=== PATIENT | female | born 1980 | race Caucasian/White ===

== ENCOUNTER → 2024-02-10 | Emergency (ER) | payer BC, MEDICAID, SELFPAY ==
[~2024-02-10] VITALS: Ht 165.1 cm; Wt 105.0 kg
[~2024-02-10] MED LIST: DIPH25CA85 PO; QUET400T5 PO
[2024-02-10 04:06] VITALS: BP 132/82; PULSE 72; RESP 16; TEMP 98; O2SAT 100
[2024-02-10] MEDS: DiphenhydrAMINE HCL 25 MG CAPSULE PO ONE (07:03)
== END | disposition home or self-care (01) ==
LOC: EMS 03:59
DX: S20.361A Insect bite (nonvenomous) of right front wall of thorax, initial encounter (principal); R20.2 Paresthesia of skin; R20.0 Anesthesia of skin; F32.A Depression, unspecified; W57.XXXA Bitten or stung by nonvenomous insect and other nonvenomous arthropods, initial encounter; Y93.89 Activity, other specified; Y92.89 Other specified places as the place of occurrence of the external cause; Y99.8 Other external cause status
CPT/HCPCS: 99283

== ENCOUNTER 2024-04-07 19:48 | Emergency (ER) | payer SELFPAY ==
[~2024-04-07] VITALS: Ht 157.5 cm; Wt 101.4 kg
[2024-04-07 19:55] VITALS: TEMP 98.1
[2024-04-07 20:09] LABS: BASOPHILS % (AUTO) 0.8 % (0.0-2.0); EOSINOPHILS % (AUTO) 2.5 % (1.0-6.0); HEMATOCRIT 42.6 % (36-46); HEMOGLOBIN 14.2 g/dL (12.0-16.0); LYMPHOCYTES # (AUTO) 2.2 K/uL (1.0-4.8); LYMPHOCYTES % (AUTO) 36.7 % (22.0-44.0); MEAN CORPUSCULAR HEMOGLOBIN 29.3 pg (26.0-34.0); MEAN CORPUSCULAR HGB CONC 33.3 G/dL (31.0-37.0); MEAN CORPUSCULAR VOLUME 88 fL (80-100); MONOCYTES # (AUTO) 0.5 K/uL (0.1-1.0); MONOCYTES % (AUTO) 9.1 % (2.0-9.0); NEUTROPHILS % (AUTO) 50.9 % (40.0-70.0); PLATELET COUNT (AUTO) 263 K/uL (150-450); RED BLOOD CELL COUNT(AUTO) 4.84 MIL/uL (4.00-5.20); RED CELL DISTRIBUTION WIDTH 13.2 % (11.5-14.5); WHITE BLOOD COUNT (AUTO) 5.9 K/uL (4.5-11.0)
[2024-04-07 20:19] LABS: ANION GAP 5 mmol/L (8-16); CARBON DIOXIDE 28 mmol/L (22-29); CHLORIDE 103 mmol/L (98-107); CREATININE 0.84 mg/dL (0.60-1.30); GLOMERULAR FILTR. RATE CALC > 60 mL/min (>60); GLUCOSE,RANDOM 124 mg/dL (70-110); POTASSIUM 3.7 mmol/L (3.5-5.1); SODIUM SERUM 136 mmol/L (136-145); UREA NITROGEN, BLOOD 7 mg/dL (7-18)
[2024-04-07 20:26] LABS: TROPONIN I-HIGH SENSITIVITY 4 ng/L (<51)
[2024-04-07 20:28] LABS: B-TYPE NATRIURETIC PEPTIDE 15 pg/mL (0-100)
[2024-04-07 20:46] LABS: APPEARANCE,URINE CLEAR (CLEAR); BILIRUBIN,URINE NEGATIVE (NEGATIVE); COLOR,URINE COLORLESS (YELLOW); GLUCOSE, URINE (UA) NEGATIVE (NEGATIVE); HCG,QUAL URINE NEGATIVE (NEGATIVE); KETONES,URINE NEGATIVE (NEGATIVE); LEUKOCYTE ESTERASE ,URINE NEGATIVE (NEGATIVE); NITRATE,URINE NEGATIVE (NEGATIVE); OCCULT BLOOD,URINE NEGATIVE (NEGATIVE); PH,URINE 6.5 (5.0-8.0); PROTEIN,URINE NEGATIVE (NEGATIVE); SPECIFIC GRAVITIY, URINE 1.003 (1.003-1.030); UROBILINOGEN,URINE <=1.0 mg/dL (<=1.0)
[2024-04-07 20:54] LABS: BACTERIA,URINE Rare /HPF (None Seen); RBC,URINE 0-2 /HPF (0-2); SQUAMOUS EPITHELIAL CELL,UR Few /LPF (None Seen); WBC,URINE 0-2 /HPF (0-5); YEAST,URINE Few /HPF (None Seen)
[2024-04-07] MEDS ORDERED: MAG30ORA11 PO (22:40)
[2024-04-07] MEDS ORDERED: OMEP20 PO (22:40)
[2024-04-07] MEDS ORDERED: ACET-66 PO (22:40)
[2024-04-07 23:12] VITALS: BP 132/73; PULSE 84; RESP 18; O2SAT 99
== END 2024-04-07 23:50 | disposition home or self-care (01) ==
LOC: EMS 19:49
DX: R07.89 Other chest pain (principal); R11.0 Nausea
CPT/HCPCS: 71045; 80048; 81001; 83880; 84484; 84703; 85025; 93005; 99285; 36415-L1; 36415-TC

== ENCOUNTER 2024-04-26 21:19 | Inpatient (IN) | payer MEDICAID ==
[~2024-04-26] VITALS: Ht 157.5 cm; Wt 102.6 kg
[~2024-04-26 21:19] MED LIST changes: +ACET-66 PO; +MAG30ORA11 PO; +OMEP20 PO
[2024-04-26 21:51] LABS: BASOPHILS % (AUTO) 0.5 % (0.0-2.0); EOSINOPHILS % (AUTO) 2.4 % (1.0-6.0); HEMATOCRIT 42.8 % (36-46); HEMOGLOBIN 14.3 g/dL (12.0-16.0); LYMPHOCYTES # (AUTO) 2.1 K/uL (1.0-4.8); LYMPHOCYTES % (AUTO) 30.6 % (22.0-44.0); MEAN CORPUSCULAR HEMOGLOBIN 29.5 pg (26.0-34.0); MEAN CORPUSCULAR HGB CONC 33.4 G/dL (31.0-37.0); MEAN CORPUSCULAR VOLUME 88 fL (80-100); MONOCYTES # (AUTO) 0.7 K/uL (0.1-1.0); NEUTROPHILS # (AUTO) 3.8 K/uL (1.8-7.7); NEUTROPHILS % (AUTO) 56.5 % (40.0-70.0); PLATELET COUNT (AUTO) 263 K/uL (150-450); RED BLOOD CELL COUNT(AUTO) 4.85 MIL/uL (4.00-5.20); RED CELL DISTRIBUTION WIDTH 13.2 % (11.5-14.5); WHITE BLOOD COUNT (AUTO) 6.8 K/uL (4.5-11.0)
[2024-04-26 22:01] LABS: ANION GAP 11 mmol/L (8-16); CALCIUM, TOTAL 9.2 mg/dL (8.8-10.5); CARBON DIOXIDE 24 mmol/L (22-29); CHLORIDE 104 mmol/L (98-107); CREATININE 0.69 mg/dL (0.60-1.30); GLOMERULAR FILTR. RATE CALC > 60 mL/min (>60); GLUCOSE,RANDOM 99 mg/dL (70-110); SODIUM SERUM 139 mmol/L (136-145); UREA NITROGEN, BLOOD 7 mg/dL (7-18)
[2024-04-26 22:11] LABS: ALCOHOL, BLOOD (SERUM) < 3 mg/dL (0-10)
[2024-04-26 22:31] LABS: APPEARANCE,URINE HAZY (CLEAR); BILIRUBIN,URINE NEGATIVE (NEGATIVE); COLOR,URINE YELLOW (YELLOW); GLUCOSE, URINE (UA) NEGATIVE (NEGATIVE); KETONES,URINE NEGATIVE (NEGATIVE); LEUKOCYTE ESTERASE ,URINE LARGE (NEGATIVE); NITRATE,URINE NEGATIVE (NEGATIVE); OCCULT BLOOD,URINE NEGATIVE (NEGATIVE); PROTEIN,URINE 100-200,SEE CONFIRM mg/dL (NEGATIVE); SPECIFIC GRAVITIY, URINE 1.024 (1.003-1.030); UROBILINOGEN,URINE <=1.0 mg/dL (<=1.0)
[2024-04-26 22:39] LABS: ALCOHOL, URINE DRUG SCREEN NEGATIVE (NEGATIVE); AMPHET/METH SCREEN,URINE NEGATIVE (NEGATIVE); BARBITURATE SCREEN, URINE NEGATIVE (NEGATIVE); BENZODIAZEPINES SCREEN,URINE NEGATIVE (NEGATIVE); CANNABINOID SCREEN,URINE NEGATIVE (NEGATIVE); COCAINE SCREEN,URINE NEGATIVE (NEGATIVE); METHADONE SCREEN, URINE NEGATIVE (NEGATIVE); OPIATE SCREEN,URINE NEGATIVE (NEGATIVE); PHENCYCLIDINE SCREEN,URINE NEGATIVE (NEGATIVE)
[2024-04-26 22:45] LABS: BACTERIA,URINE Moderate /HPF (None Seen); MUCUS,URINE Few LPF (None Seen); RBC,URINE 0-2 /HPF (0-2); SQUAMOUS EPITHELIAL CELL,UR Moderate /LPF (None Seen)
[2024-04-26 22:45] LABS: COVID AG,FIA SOURCE NASAL SWAB
[2024-04-26 22:46] LABS: SULFOSALICYLIC ACID,URINE Trace (Negative)
[2024-04-26 23:04] LABS: SARS-COV2 (COVID) ANTIGEN,FIA Negative (Negative)
[2024-04-26] MEDS ORDERED: HALOPERIDOL 5 MG TABLET PO PRN (23:15)
[2024-04-26] MEDS ORDERED: LORazepam 2 MG TABLET PO PRN (23:15)
[2024-04-26] MEDS: HALOPERIDOL 5 MG TABLET PO ONE (23:27)
[2024-04-26] MEDS: DiphenhydrAMINE HCL 25 MG CAPSULE PO ONE (23:27)
[2024-04-26] MEDS: LORazepam 2 MG TABLET PO ONE (23:28)
[2024-04-27] MEDS: CEPHALEXIN MONOHYDRATE 500 MG CAPSULE PO ONE (09:06)
[2024-04-28] MEDS: CEPHALEXIN MONOHYDRATE 500 MG CAPSULE PO ONE (09:21)
[2024-04-28 19:16] VITALS: O2SAT 98
[2024-04-29 00:30] VITALS: BP 125/71; PULSE 82; RESP 18; TEMP 97.4; O2SAT 95
[2024-04-29 10:29] VITALS: BP 137/61; PULSE 61; RESP 18; TEMP 98; O2SAT 98
[2024-04-29] MEDS ORDERED: ALBUTEROL SULFATE HFA 90 MCG/PUFF 8 GM INHALER IH PRN (10:45)
[2024-04-29] MEDS ORDERED: IBUPROFEN 400 MG TABLET PO PRN (10:45)
[2024-04-29] MEDS ORDERED: ACETAMINOPHEN 325 MG TABLET PO PRN (10:45)
[2024-04-29] MEDS ORDERED: LOPERAMIDE HCL 2 MG CAPSULE PO PRN (10:45)
[2024-04-29] MEDS ORDERED: MAGNESIUM HYDROXIDE SUSPENSION 30 ML UDCUP PO PRN (10:45)
[2024-04-29] MEDS ORDERED: ONDANSETRON 4 MG TABLET PO PRN (10:45)
[2024-04-29] MEDS ORDERED: DOCUSATE SODIUM 100 MG CAPSULE PO PRN (10:45)
[2024-04-29] MEDS ORDERED: NICOTINE 14 MG/24 HOUR PATCH TD PRN (10:45)
[2024-04-29] MEDS ORDERED: GuaiFENesin/D-METHORPHAN [SUGAR-FREE] 200-20MG/10 ML SYRUP UDCUP PO PRN (10:45)
[2024-04-29] MEDS ORDERED: CloNIDine HCL 0.1 MG TABLET PO PRN (10:45)
[2024-04-29] MEDS ORDERED: MAG HYDROX/ALUMINUM HYD/SIMETH ES 30 ML SUSPENSION UDCUP PO PRN (10:45)
[2024-04-29] MEDS ORDERED: PETROLATUM,WHITE 28 GM JELLY TP PRN (10:45)
[2024-04-29] MEDS ORDERED: QUEtiapine FUMARATE 200 MG TABLET PO SCH (12:15)
[2024-04-29] MEDS: CEPHALEXIN MONOHYDRATE 500 MG CAPSULE PO SCH (12:53)
[2024-04-29] MEDS: LURASIDONE HCL 40 MG TABLET PO SCH (17:40)
[2024-04-29 21:27] VITALS: BP 119/59; PULSE 60; RESP 18; TEMP 98.6; O2SAT 100
[2024-04-30 07:24] LABS: HEMOGLOBIN A1C 5.2 % (3.8-5.6)
[2024-04-30 07:47] LABS: CHOL/HDL RATIO 3.7 (3.9-5.7); THYROID STIMULATING HORMONE 1.01 uIU/mL (0.36-3.74)
[2024-04-30 10:06] VITALS: BP 113/57; PULSE 62; RESP 18; TEMP 98.7; O2SAT 99
[2024-04-30 22:13] VITALS: BP 125/62; PULSE 75; RESP 18; TEMP 97.5; O2SAT 99
[2024-05-01 10:45] VITALS: BP 111/53; PULSE 66; RESP 19; TEMP 98; O2SAT 98
[2024-05-01 21:09] VITALS: BP 113/67; PULSE 64; RESP 18; TEMP 97.8; O2SAT 100
[2024-05-02 09:58] VITALS: BP 93/63; PULSE 65; RESP 17; TEMP 97.4; O2SAT 96
[2024-05-02 22:23] VITALS: BP 124/71; PULSE 75; RESP 18; TEMP 98; O2SAT 100
[2024-05-03 16:05] VITALS: BP 143/74; PULSE 88; RESP 18; TEMP 98; O2SAT 98
[2024-05-03 20:48] VITALS: BP 125/70; PULSE 87; RESP 18; TEMP 97.9
[2024-05-04 10:31] VITALS: BP 100/62; PULSE 67; RESP 18; TEMP 98.2; O2SAT 96
[2024-05-04 20:59] VITALS: BP 95/62; PULSE 75; RESP 18; TEMP 98.4; O2SAT 98
[2024-05-05 11:03] VITALS: RESP 17; TEMP 97
[2024-05-05 21:14] VITALS: BP 96/55; PULSE 69; RESP 18; TEMP 97.1
[2024-05-06] MEDS: ZOLPIDEM TARTRATE 10 MG TABLET PO PRN (00:10)
[2024-05-06 12:49] VITALS: BP 119/63; PULSE 78; RESP 18; TEMP 97.5; O2SAT 98
[2024-05-06 21:12] VITALS: BP 119/62; PULSE 68; RESP 18; TEMP 98.3; O2SAT 98
[2024-05-07 10:11] VITALS: BP 112/50; PULSE 63; RESP 18; TEMP 97; O2SAT 100
[2024-05-07 22:08] VITALS: BP 96/59; PULSE 67; RESP 18; TEMP 98.4; O2SAT 99
[2024-05-08 08:45] VITALS: BP 108/67; PULSE 68; RESP 18; O2SAT 97
[2024-05-08] MEDS ORDERED: LURA40TA2 PO (18:52)
[2024-05-08 20:20] VITALS: BP 153/82; PULSE 73; RESP 19; TEMP 98; O2SAT 99
== END 2024-05-08 20:51 | disposition home or self-care (01) | DRG 750 ==
LOC: EMS 21:19 → 3EI 04-28 23:17
PROVIDERS: ADMIT Psychiatry & Neurology Child & Adolescent Psychiatry; ATTEND Psychiatry & Neurology Child & Adolescent Psychiatry
PROC: GZ52ZZZ Individual Psychotherapy, Cognitive (ICD-10-PCS; principal; 2024-04-29)
PROC: GZHZZZZ Group Psychotherapy (ICD-10-PCS; 2024-04-29)
PROC: GZ56ZZZ Individual Psychotherapy, Supportive (ICD-10-PCS; 2024-04-29)
DX: F20.0 Paranoid schizophrenia (principal); E66.3 Overweight; Z20.822 Contact with and (suspected) exposure to COVID-19; I10 Essential (primary) hypertension; K21.9 Gastro-esophageal reflux disease without esophagitis; N39.0 Urinary tract infection, site not specified; F32.A Depression, unspecified; F41.9 Anxiety disorder, unspecified; Z79.899 Other long term (current) drug therapy; Z68.41 Body mass index [BMI] 40.0-44.9, adult
CPT/HCPCS: 80048; 80061; 80307; 81001; 81002; 83036; 84443; 85025; 87086; 99285; G0480

== ENCOUNTER 2024-08-24 19:51 | Emergency (ER) | payer MEDICAID ==
[~2024-08-24] VITALS: Ht 157.5 cm; Wt 98.4 kg
[~2024-08-24 19:51] MED LIST changes: -ACET-66 PO; -DIPH25CA85 PO; -MAG30ORA11 PO; -OMEP20 PO; -QUET400T5 PO; +RISP4TAB94 PO
[2024-08-24 20:03] VITALS: TEMP 98.2
[2024-08-24 22:00] VITALS: BP 114/65; PULSE 74; RESP 18; O2SAT 99
[2024-08-24] MEDS: IBUPROFEN 400 MG TABLET PO ONE (22:34)
[2024-08-24] MEDS: METOCLOPRAMIDE HCL 10 MG TABLET PO ONE (22:35)
[2024-08-24] MEDS: DiphenhydrAMINE HCL 25 MG CAPSULE PO ONE (22:35)
[2024-08-24] MEDS: ACETAMINOPHEN 500 MG TABLET PO ONE (22:35)
== END 2024-08-25 00:30 | disposition home or self-care (01) ==
LOC: EMS 20:06
DX: R51.9 Headache, unspecified (principal); F20.9 Schizophrenia, unspecified; F41.9 Anxiety disorder, unspecified; F32.A Depression, unspecified; Z90.710 Acquired absence of both cervix and uterus; Z79.899 Other long term (current) drug therapy
CPT/HCPCS: 99284; Z7502; Z7610

== ENCOUNTER 2024-09-27 16:27 | Emergency (ER) | payer MEDICAID ==
[~2024-09-27] VITALS: Ht 162.6 cm; Wt 90.9 kg
[2024-09-27 16:31] VITALS: BP 117/84; PULSE 118; RESP 20; TEMP 98.9; O2SAT 99
[2024-09-27 16:58] LABS: PLATELET COUNT (AUTO) 253 K/uL (150-450); RED BLOOD CELL COUNT(AUTO) 4.51 MIL/uL (4.00-5.20); RED CELL DISTRIBUTION WIDTH 14.6 % (11.5-14.5); WHITE BLOOD COUNT (AUTO) 4.8 K/uL (4.5-11.0)
[2024-09-27 17:07] LABS: CALCIUM, TOTAL 8.7 mg/dL (8.8-10.5); CREATININE 0.86 mg/dL (0.60-1.30); GLOMERULAR FILTR. RATE CALC > 60 mL/min (>60); GLUCOSE,RANDOM 87 mg/dL (70-110); SODIUM SERUM 143 mmol/L (136-145); UREA NITROGEN, BLOOD 7 mg/dL (7-18)
[2024-09-27] MEDS ORDERED: FLUO-418 PO (18:07)
[2024-09-27] MEDS ORDERED: QUET200T PO (18:07)
[2024-09-27] MEDS ORDERED: LURA40TA2 PO (18:07)
[2024-09-27] MEDS: LURASIDONE HCL 40 MG TABLET PO ONE (18:29)
== END 2024-09-27 18:39 | disposition home or self-care (01) ==
LOC: EMS 16:27
DX: F20.0 Paranoid schizophrenia (principal); F32.A Depression, unspecified; F41.9 Anxiety disorder, unspecified; Z90.710 Acquired absence of both cervix and uterus; Z79.899 Other long term (current) drug therapy
CPT/HCPCS: 99285; 80048; 85025; 36415; G0480

== ENCOUNTER 2024-11-18 15:39 | Emergency (ER) | payer MEDICAID ==
[~2024-11-18] VITALS: Ht 165.1 cm; Wt 72.0 kg
[~2024-11-18 15:39] MED LIST changes: +FLUO-418 PO; +LURA40TA2 PO; +QUET200T PO
[2024-11-18 16:03] VITALS: BP 119/77; PULSE 87; RESP 18; TEMP 97.8; O2SAT 99
== END 2024-11-18 16:43 | disposition still patient (30) ==
LOC: EMS 15:52
DX: F41.9 Anxiety disorder, unspecified (principal); Z53.21 Procedure and treatment not carried out due to patient leaving prior to being seen by health care provider